=== PATIENT | female | born 1995 ===

== ENCOUNTER 2016-06-30 13:17 | Emergency (ER) | payer OTHER ==
--- NOTE | 2016-06-30 14:36 | UC ---
Laceration HPI - HPI Summary HPI Summary: complaint of thumb laceration while cutting up chicken that poccurred at 12:40 today did bleed and was controlled with pressure last tetanusus immunization 2 years ago hasn't taken any medication for pain - History Of Current Complaint Chief Complaint: UCLaceration Stated Complaint: FINGER LACERATION Time Seen by Provider: 06/30/16 14:29 Hx Obtained From: Patient - Allergies/Home Medications Allergies/Adverse Reactions: Allergies Allergy/AdvReac Type Severity Reaction Status Date / Time No Known Allergies Allergy Verified 06/30/16 13:35 Home Medications: Home Medications Control 06/30/16 [History] PMH/Surg Hx/FS Hx/Imm Hx Previously Healthy: Yes Endocrine History Of: Denies: Diabetes, Thyroid Disease Cardiovascular History Of: Denies: Cardiac Disorders, Hypertension Respiratory History Of: Denies: COPD, Asthma GI/ History Of: Denies: Ulcer - Surgical History Surgical History: None - Family History Known Family History: Negative: Cardiac Disease, Hypertension, Diabetes - Social History Occupation: Employed Full-time Lives: With Family Alcohol Use: Weekly Substance Use Type: None Smoking Status (MU): Never Smoked Tobacco Review of Systems Constitutional: Negative Skin: Other Eyes: Negative ENT: Negative Respiratory: Negative Cardiovascular: Negative Gastrointestinal: Negative Genitourinary: Negative Motor: Negative Neurovascular: Negative Musculoskeletal: Negative Neurological: Negative Psychological: Negative All Other Systems Reviewed And Are Negative: Yes Physical Exam Triage Information Reviewed: Yes Appearance: No Pain Distress, Well-Nourished Vital Signs: Initial Vital Signs Temp 98.2 F 06/30/16 13:31 Pulse 84 06/30/16 13:31 Resp 16 06/30/16 13:31 BP 126/85 06/30/16 13:31 Pulse Ox 100 06/30/16 13:31 Vital Signs Reviewed: Yes Eyes: Positive: Conjunctiva Clear ENT: Positive: Pharynx normal, TMs normal. Negative: Nasal congestion Neck: Positive: Supple Respiratory: Positive: Lungs clear, Normal breath sounds, No respiratory distress Cardiovascular: Positive: RRR, No Murmur Musculoskeletal Exam: Normal Neurological: Positive: Alert Psychological Exam: Normal Skin: Positive: Other - left thumb with small laceration Laceration Repair - Laceration Repair 1 : No Repair Necessary Laceration Size After Repair: Length (cm) - 3mm, Width (mm) - 2mm, Depth (mm) - 2mm Modified For Repair: No Cleansing Completed Via Routine Prep: Yes Closure Material: Skin Adhesive, SteriStrips Laceration Course/Dx - Differential Dx - Laceration/Wound Differental Diagnoses: Laceration Provider Diagnoses: left thumb laceration Discharge - Discharge Plan Condition: Stable Disposition: HOME Patient Education Materials: Skin Adhesive Care (ED) Additional Instructions: keep your finger clean and dry leave the steri-strips in place until they fall off change deressinf around steri-strips daily look for any signs of infection which include increase in redness, swelling or pain Take acetaminophen or ibuprofen for fever or pain Please review your discharge instructions. If your symptoms do not improve please call your primary care provider or return to urgent care
[2016-07-02] MEDS ORDERED: Benzoin Compound STICK ONE (17:29)
== END 2016-06-30 15:00 | disposition home or self-care (01) ==
LOC: UCEAST 13:17
DX: S61.012A Laceration without foreign body of left thumb without damage to nail, initial encounter (principal); W26.0XXA Contact with knife, initial encounter; Y93.G1 Activity, food preparation and clean up; Y92.9 Unspecified place or not applicable; Y99.9 Unspecified external cause status
CPT/HCPCS: 12001; 99201; G0463